=== PATIENT | male | born 1990 | race Caucasian/White ===

== ENCOUNTER 2018-02-21 17:46 | Emergency (ER) | payer MEDICAID ==
[2018-02-21] MEDS ORDERED: Sodium Chloride 0.9% 1,000 ML IV ONE (18:50)
--- NOTE | 2018-02-21 18:50 | ED Physician Chart ---
ED Chief Complaint/HPI - Patient Information Date Seen:: 02/21/18 Time Seen:: 18:00 Chief Complaint:: Fever History of Present Illness:: onset x 4 days of fever, N/V/D x 15; pt denies trauma, H/As, S/T, neck pain, cough, C/P, SOB, Abd. Pain, A/C, chills, or urinary s/s Allergies:: Allergies Allergy/AdvReac Type Severity Reaction Status Date / Time MDX No Known Allergies - Nka Allergy Verified 11/18/15 09:21 [No Known Allergies - Nka] Vitals:: Vital Signs - 8 hr 02/21/18 18:03 Temp 98.6 F HR 77 RR 16 BP 106/64 Historian:: Patient Review:: Nurse's Note Reviewed <Kostas Peck - Last Filed: 02/21/18 18:48> - Patient Information Allergies:: Allergies Allergy/AdvReac Type Severity Reaction Status Date / Time No Known Allergies Allergy Verified 02/21/18 18:55 Vitals:: Vital Signs - 8 hr 02/21/18 18:03 Temp 98.6 F HR 77 RR 16 BP 106/64 <Dallas Farris - Last Filed: 02/21/18 21:00> ED Review of Systems - Review of Systems General/Constitutional: Fever, No chills, No weight loss, No weakness, No diaphoresis, No edema, No loss of appetite Skin: No skin lesions, No rash, No bruising Head: No headache, No light-headedness Eyes: No loss of vision, No pain, No diplopia ENT: No earache, No nasal drainage, No sore throat, No tinnitus Neck: No neck pain, No swelling, No thyromegaly, No stiffness, No mass noted Cardio Vascular: No chest pain, No palpitations, No PND, No orthopnea, No edema Pulmonary: No SOB, No cough, No sputum, No wheezing GI: Nausea, Vomiting, Diarrhea, No pain, No melena, No hematochezia, No constipation, No hematemesis G/U: No dysuria, No frequency, No hematuria, No nacturia Musculoskeletal: No bone or joint pain, No back pain, No muscle pain Endocrine: No polyuria, No polydipsia Psychiatric: No prior psych history, No depression, No anxiety, No suicidal ideation, No homicidal ideation, No auditory hallucination, No visual hallucination Hematopoietic: No bruising, No lymphadenopathy Allergic/Immuno: No urticaria, No angioedema Neurological: No syncope, No focal symptoms, No weakness, No paresthesia, No headache, No seizure, No dizziness, No confusion, No vertigo <Kostas Peck - Last Filed: 02/21/18 18:48> ED Past Medical History - Past Medical History Obtainable: Yes Past Medical History: No significant medical hx Family History: None Social History: Non Smoker, No Alcohol, No Drug Use, Single Surgical History: None Psychiatricy History: None Medication: Reviewed <Kostas Peck - Last Filed: 02/21/18 18:48> Family Medical History - Family Member Mother History Unknown: Yes <KaleighDallas - Last Filed: 02/21/18 21:00> ED Physical Exam - Physical Examination General/Constitutional: Awake, Well-developed, well-nourished, Alert, No distress, GCS 15, Non-toxic appearing, Ambulatory Head: Atraumatic Eyes: Lids, conjuctiva normal, PERRL, EOMI Skin: Nl inspection, No rash, No skin lesions, No ecchymosis, Well hydrated, No lymphadenopathy ENMT: External ears, nose nl, TM canals nl, Nasal exam nl, Lips, teeth, gums nl , Oropharynx nl, Tonsils nl Neck: Nontender, Full ROM w/o pain, No JVD, No nuchal rigidity, No bruit, No mass, No stridor Respiratory: Nl effort/Exclusion, Clear to Auscultation, No Wheeze/Rhonchi/Rales Cardio Vascular: RRR, No murmur, gallop, rubs, NL S1 S2, Carotid/Femoral/Distal pulses equal bilaterally GI: No tenderness/rebounding/guarding, No organomegaly, No hernia, Normal BS's, Nondistended, No mass/bruits, No McBurney tenderness : No CVA tenderness Extremities: No tenderness or effusion, Full ROM, normal strength in all extremities, No edema, Normal digits & nails Neuro/Psych: Alert/oriented, DTR's symmetric, Normal sensory exam, Normal motor strength, Judgement/insight normal, Mood normal, Normal gait, No focal deficits Misc: Normal back, No paraspinal tenderness <Kostas Peck - Last Filed: 02/21/18 18:48> ED Labs/Radiology/EKG Results - Lab Results Results: Laboratory Tests 02/21/18 02/21/18 02/21/18 19:00 19:09 19:09 WBC 10.1 RBC 5.48 Hgb 15.4 Hct 45.8 MCV 83.6 MCH 28.2 MCHC Differential 33.7 RDW 12.7 Plt Count 223 MPV 7.7 Neutrophils % 73.0 Lymphocytes % 17.2 L Monocytes % 8.2 Eosinophils % 0.7 Basophils % 0.9 Sodium 135 L Potassium 3.7 Chloride 101 Carbon Dioxide 24.2 Anion Gap 13.5 BUN 7 Creatinine 0.8 Est GFR ( Amer) > 60.0 Est GFR (Non-Af Amer) > 60.0 BUN/Creatinine Ratio 8.8 Glucose 100 Calcium 9.3 Amylase 29 Lipase 24 Urine Source CLEAN C Urine Color YELLOW Urine Clarity CLEAR Urine pH 5.5 Ur Specific [place] 1.010 Urine Protein NEGATIVE Urine Glucose (UA) NEGATIVE Urine Ketones NEGATIVE Urine Blood NEGATIVE Urine Nitrate NEGATIVE Urine Bilirubin NEGATIVE Urine Urobilinogen 0.2 Ur Leukocyte Esterase NEGATIVE Urine RBC NONE SEEN Urine WBC NONE SEEN Ur Epithelial Cells NONE SEEN Urine Bacteria NONE SEEN Laboratory Last Values WBC 10.1 Th/cmm (4.8-10.8) 02/21/18 19:09 RBC 5.48 Mil/cmm (4.30-5.70) 02/21/18 19:09 Hgb 15.4 gm/dL (12-16) 02/21/18 19:09 Hct 45.8 % (41.0-60) 02/21/18 19:09 MCV 83.6 fl (80-99) 02/21/18 19:09 MCH 28.2 pg (26.0-30.0) 02/21/18 19:09 MCHC Differential 33.7 pg (28.0-36.0) 02/21/18 19:09 RDW 12.7 % (11.5-20.0) 02/21/18 19:09 Plt Count 223 Th/cmm (150-400) 02/21/18 19:09 MPV 7.7 fl 02/21/18 19:09 Neutrophils % 73.0 % (40.0-80.0) 02/21/18 19:09 Lymphocytes % 17.2 % (20.0-50.0) L 02/21/18 19:09 Monocytes % 8.2 % (2.0-10.0) 02/21/18 19:09 Eosinophils % 0.7 % (0.0-5.0) 02/21/18 19:09 Basophils % 0.9 % (0.0-2.0) 02/21/18 19:09 Sodium 135 mEq/L (136-145) L 02/21/18 19:09 Potassium 3.7 mEq/L (3.5-5.1) 02/21/18 19:09 Chloride 101 mEq/L (98-107) 02/21/18 19:09 Carbon Dioxide 24.2 mEq/L (21.0-31.0) 02/21/18 19:09 Anion Gap 13.5 (7.0-16.0) 02/21/18 19:09 BUN 7 mg/dL (7-25) 02/21/18 19:09 Creatinine 0.8 mg/dL (0.7-1.3) 02/21/18 19:09 Est GFR ( Amer) > 60.0 ml/min (>90) 02/21/18 19:09 Est GFR (Non-Af Amer) > 60.0 ml/min 02/21/18 19:09 BUN/Creatinine Ratio 8.8 02/21/18 19:09 Glucose 100 mg/dL (70-105) 02/21/18 19:09 Calcium 9.3 mg/dL (8.6-10.3) 02/21/18 19:09 Amylase 29 U/L (29-103) 02/21/18 19:09 Lipase 24 U/L (11-82) 02/21/18 19:09 Urine Source CLEAN C 02/21/18 19:00 Urine Color YELLOW 02/21/18 19:00 Urine Clarity CLEAR (CLEAR) 02/21/18 19:00 Urine pH 5.5 (4.6 - 8.0) 02/21/18 19:00 Ur Specific [place] 1.010 (1.005-1.030) 02/21/18 19:00 Urine Protein NEGATIVE mg/dL (NEGATIVE) 02/21/18 19:00 Urine Glucose (UA) NEGATIVE mg/dL (NEGATIVE) 02/21/18 19:00 Urine Ketones NEGATIVE mg/dL (NEGATIVE) 02/21/18 19:00 Urine Blood NEGATIVE (NEGATIVE) 02/21/18 19:00 Urine Nitrate NEGATIVE (NEGATIVE) 02/21/18 19:00 Urine Bilirubin NEGATIVE (NEGATIVE) 02/21/18 19:00 Urine Urobilinogen 0.2 E.U./dL (0.2 - 1.0) 02/21/18 19:00 Ur Leukocyte Esterase NEGATIVE (NEGATIVE) 02/21/18 19:00 Urine RBC NONE SEEN /hpf (0-5) 02/21/18 19:00 Urine WBC NONE SEEN /hpf (0-5) 02/21/18 19:00 Ur Epithelial Cells NONE SEEN /lpf (FEW) 02/21/18 19:00 Urine Bacteria NONE SEEN /hpf (NONE SEEN) 02/21/18 19:00 <Dallas Farris - Last Filed: 02/21/18 21:00> ED Septic Shock - . Is Septic Shock (SBP<90, OR Lactate>4 mmol\L) present?: No - <6hrs of presentation: Vital Signs: Vital Signs - 8 hr 02/21/18 18:03 Temp 98.6 F HR 77 RR 16 BP 106/64 <Kostas Peck - Last Filed: 02/21/18 18:48> - . Is Septic Shock (SBP<90, OR Lactate>4 mmol\L) present?: No - <6hrs of presentation: Vital Signs: Vital Signs - 8 hr 02/21/18 18:03 Temp 98.6 F HR 77 RR 16 BP 106/64 <Dallas Farris - Last Filed: 02/21/18 21:00> ED Reassessment (Disposition) - Reassessment Reassessment:: Patient had no nausea, vomiting, diarrhea or abdominal pain. His lab results were within normal range. His sodium was 135 and 1L NS was given. Patient is currently stable. - Diagnosis Diagnosis:: Gastroenteritis - Aftercare/Follow up Instructions Notes:: F/u PCP or return to ER if symptoms worsen <Dallas Farris - Last Filed: 02/21/18 21:00>
[2018-02-21 19:16] LABS: % BASOPHILS 0.9 % (0.0-2.0); % EOSINOPHILS 0.7 % (0.0-5.0); % LYMPHOCYTES 17.2 % (20.0-50.0); % MONOCYTES 8.2 % (2.0-10.0); BASOPHILE ABSOLUTE 0.1 Th/cumm (0-0.2); EOSINOPHILE ABSOLUTE 0.1 Th/cmm (0.1-0.4); HEMATOCRIT 45.8 % (41.0-60); HEMOGLOBIN 15.4 gm/dL (12-16); LYMPHOCYTE ABSOLUTE 1.7 Th/cmm (1.5-3.0); MEAN CELL VOLUME 83.6 fl (80-99); MEAN CORPUSCULAR HEMOGLOBIN 28.2 pg (26.0-30.0); MEAN CORPUSCULAR HGB CONC 33.7 pg (28.0-36.0); MEAN PLATELET VOLUME 7.7 fl; MONOCYTE ABSOLUTE 0.8 Th/cmm (0.3-1.0); NEUTROPHILE ABSOLUTE 7.4 Th/cmm (1.8-8.0); PLATELET COUNT 223 Th/cmm (150-400); RED BLOOD COUNT 5.48 Mil/cmm (4.30-5.70); RED CELL DISTRIBUTION WIDTH 12.7 % (11.5-20.0); WHITE BLOOD COUNT 10.1 Th/cmm (4.8-10.8)
[2018-02-21 19:39] LABS: AMYLASE SERUM 29 U/L (29-103); ANION GAP 13.5 (7.0-16.0); BUN - UREA NITROGEN 7 mg/dL (7-25); CALCIUM SERUM 9.3 mg/dL (8.6-10.3); CARBON DIOXIDE 24.2 mEq/L (21.0-31.0); CHLORIDE 101 mEq/L (98-107); CREATININE - SERUM 0.8 mg/dL (0.7-1.3); GFR AFRICAN-AMERICAN > 60.0 ml/min (>90); GFR NON AFRICAN-AMERICAN > 60.0 ml/min; GLUCOSE 100 mg/dL (70-105); LIPASE 24 U/L (11-82); POTASSIUM SERUM 3.7 mEq/L (3.5-5.1); SODIUM SERUM 135 mEq/L (136-145)
[2018-02-21 20:47] LABS: URINE MICROSCOPIC INDICATED? YES; URINE SOURCE CLEAN C
[2018-02-21 20:48] LABS: URINE BILIRUBIN NEGATIVE (NEGATIVE); URINE BLOOD NEGATIVE (NEGATIVE); URINE GLUCOSE (UA) NEGATIVE (NEGATIVE); URINE KETONE NEGATIVE (NEGATIVE); URINE LEUKOCYTE ESTERASE NEGATIVE (NEGATIVE); URINE NITRATE NEGATIVE (NEGATIVE); URINE PH 5.5 (4.6 - 8.0); URINE PROTEIN NEGATIVE (NEGATIVE); URINE UROBILINOGEN 0.2 E.U./dL (0.2 - 1.0)
[2018-02-21 20:50] LABS: URINE CLARITY CLEAR (CLEAR); URINE COLOR YELLOW
[2018-02-21 20:51] LABS: URINE BACTERIA NONE SEEN /hpf (NONE SEEN); URINE EPITHELIAL CELLS NONE SEEN /lpf (FEW); URINE RBC NONE SEEN /hpf (0-5); URINE WBC NONE SEEN /hpf (0-5)
== END 2018-02-21 21:00 | disposition home or self-care (01) ==
LOC: ER 17:46
DX: K52.9 Noninfective gastroenteritis and colitis, unspecified (principal)
CPT/HCPCS: 99284; 96374; 36415; 85025; 81001; 82150; 83690; 80048; J2405; Z7502